=== PATIENT | male | born 1955 | race Caucasian/White ===

== ENCOUNTER 2020-01-08 16:42 | Emergency (ER) | payer OTHER, MEDICARE, SELFPAY ==
[2020-01-08 16:45] VITALS: BP 141/80; PULSE 103; RESP 15; TEMP 36.7; O2SAT 96; BMI 32.6
--- NOTE | 2020-01-08 17:07 | ED.RN ---
Patient arrived to ed in [facility] with 2 dogs. Hospital security was made aware and dogs were tied outside department. An attempt was made to triage patient to receive care, but one dog chewed through his leash. Patient stated that someone was coming from [facility] to retrieve animals. Patient stated that he would wait for evaluation until animals were retrieved and in safe area. charge account authorizer and security is aware. bradly pitt rn [id number]
--- NOTE | 2020-01-08 18:30 | ED.RN ---
I checked on patient and his pets. he continues to wait for a care provider to arrive to take his pets. he stated that the individual should be here around 1900. bradly pitt rn [id number]
--- NOTE | 2020-01-08 18:53 | ED.RN ---
Pt just had someone supervisor picking crew his dogs so he could be seen. pt also has a gun that security has.
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
== END 2020-01-08 21:16 | disposition home or self-care (01) ==
PROVIDERS: Emergency Provider Emergency Medicine
DX: S20.219A Contusion of unspecified front wall of thorax, initial encounter (principal); I10 Essential (primary) hypertension; E11.9 Type 2 diabetes mellitus without complications; Z87.891 Personal history of nicotine dependence; V53.5XXA Driver of pick-up truck or van injured in collision with car, pick-up truck or van in traffic accident, initial encounter; Y93.I9 Activity, other involving external motion; Y92.410 Unspecified street and highway as the place of occurrence of the external cause; Y99.8 Other external cause status
CPT/HCPCS: 71046; 99282